=== PATIENT | female | born 1955 | race Caucasian/White ===

== ENCOUNTER 2021-06-27 22:14 | Emergency (ER) | payer MEDICARE, OTHER ==
[~2021-06-27] VITALS: Ht 160 cm; Wt 52.0 kg
[2021-06-27] MEDS ORDERED: LACTATED RINGERS 1,000 ML IV ONE (23:30)
[2021-06-27] MEDS ORDERED: ONDANSETRON 4 MG/2 ML (SDV) Z0FRAN IVP ONE (23:30)
[2021-06-27] MEDS ORDERED: KETOROLAC 30 MG/ML VIAL IVP ONE (23:30)
--- NOTE | 2021-06-27 23:34 | ED Respiratory ---
General Chief Complaint: COVID19 Suspect/Confirmed Stated Complaint: COVID +/SOA Nursing Triage Note: PT ARRIVES TO ER WITH C/O WEAKNESS AND IS COVID + OF 06/23. PT STATES SHE DOES NOT WANT REMDISIVIR BUT HAS TAKEN IVERMECTIN THE LAST THREE DAYS Source: patient Exam Limitations: no limitations History of Present Illness Date Seen by Provider: Jun 27, 2021 Time Seen by Provider: 23:10 Initial Comments The patient presents to the ER by private conveyance with her son and chief complaint of shortness of air and dehydration. She has been using Pepto-Bismol for diarrhea. She was tested positive for COVID-19 on Monday, 5 days ago. Symptoms began 6 days ago. She stopped having fevers after the first several days. She has been drinking lots of fluids but does not feel like she is keeping up with her fluid intake. She also noticed her stools were black after she started the Pepto-Bismol. She denies a history of lung disease. She has been taking ivermectin for the last 3 days. She does not have a primary care provider. She says she omitted today's dose and thought maybe that was why she took a turn for the worst. She has not been vaccinated for COVID-19. She volunteered that she does not want remdesivir administered at this time. For clarity sake remdesivir was never offered or discussed. Allergies and Home Medications Allergies Coded Allergies: No Known Drug Allergies (Unverified , 06/27/21) Patient Home Medication List Home Medication List Reviewed: Yes Benzonatate (Tessalon Perles) 100 Mg Capsule, 100 MG PO Q6H PRN for COUGH Prescribed by: CHARLIE ARZATE on 06/27/21 4803 Ondansetron (Ondansetron Odt) 4 Mg Tab.rapdis, 4 MG PO Q6H PRN for NAUSEA/VOMITING Prescribed by: CHARLIE ARZATE on 06/27/21 8499 Review of Systems Review of Systems Constitutional: No chills, No diaphoresis EENTM: No ear discharge, No ear pain Respiratory: No cough, No short of breath Cardiovascular: No chest pain, No edema Gastrointestinal: No abdominal pain, No constipation; diarrhea; No nausea, No vomiting Genitourinary: No discharge, No dysuria Musculoskeletal: No back pain, No joint pain Skin: No pruritus, No rash Psychiatric/Neurological: Denies Anxiety, Denies Depressed All Other Systems Reviewed Negative Unless Noted: Yes Past Ognojki-Wfxgym-Bbkvfe Hx Patient Social History Tobacco Use?: No Substance use?: No Alcohol Use?: No Pt feels they are or have been: No Immunizations Up To Date Influenza Vaccine Up-to-Date: No; Not Current Physical Exam Vital Signs - First Documented 06/27/21 06/28/21 22:20 01:41 Temp 36.8 Pulse 71 Resp 20 B/P (MAP) 121/55 (77) Pulse Ox 93 O2 Delivery Room Air Capillary Refill : Height: '" Weight: lbs. oz. kg; 20.00 BMI Method: General Appearance: WD/WN, mild distress Eyes: Bilateral Eye Normal Inspection, Bilateral Eye PERRL, Bilateral Eye EOMI HEENT: PERRL/EOMI, pharynx normal Neck: full range of motion, supple, normal inspection Respiratory: lungs clear, normal breath sounds, no respiratory distress, no accessory muscle use Cardiovascular: normal peripheral pulses, regular rate, rhythm, no edema Extremities: non-tender, normal inspection, normal capillary refill Neurologic/Psychiatric: alert, normal mood/affect, oriented x 3 Skin: normal color, warm/dry Progress/Results/Core Measures Suspected Sepsis SIRS Temperature: Pulse: 71 Respiratory Rate: 20 Laboratory Tests 06/27/21 23:50: White Blood Count 3.5L Blood Pressure 121 /55 Mean: 77 Laboratory Tests 06/27/21 23:50: Creatinine 0.80, Platelet Count 145, Total Bilirubin 0.2 Results/Orders Lab Results Laboratory Tests Test 06/27/21 23:50 Range/Units White Blood Count 3.5 L 4.3-11.0 10^3/uL Red Blood Count 4.77 3.80-5.11 10^6/uL Hemoglobin 13.1 11.5-16.0 g/dL Hematocrit 39 35-52 % Mean Corpuscular Volume 83 80-99 fL Mean Corpuscular Hemoglobin 28 25-34 pg Mean Corpuscular Hemoglobin Concent 33 32-36 g/dL Red Cell Distribution Width 12.6 10.0-14.5 % Platelet Count 145 130-400 10^3/uL Mean Platelet Volume 10.0 9.0-12.2 fL Immature Granulocyte % (Auto) 0 % Neutrophils (%) (Auto) 65 42-75 % Lymphocytes (%) (Auto) 25 12-44 % Monocytes (%) (Auto) 10 0-12 % Eosinophils (%) (Auto) 0 0-10 % Basophils (%) (Auto) 0 0-10 % Neutrophils # (Auto) 2.3 1.8-7.8 10^3/uL Lymphocytes # (Auto) 0.9 L 1.0-4.0 10^3/uL Monocytes # (Auto) 0.3 0.0-1.0 10^3/uL Eosinophils # (Auto) 0.0 0.0-0.3 10^3/uL Basophils # (Auto) 0.0 0.0-0.1 10^3/uL Immature Granulocyte # (Auto) 0.0 0.0-0.1 10^3/uL Sodium Level 133 L 135-145 MMOL/L Potassium Level 4.2 3.6-5.0 MMOL/L Chloride Level 98 98-107 MMOL/L Carbon Dioxide Level 23 21-32 MMOL/L Anion Gap 12 5-14 MMOL/L Blood Urea Nitrogen 12 7-18 MG/DL Creatinine 0.80 0.60-1.30 MG/DL Estimat Glomerular Filtration Rate 72 BUN/Creatinine Ratio 15 Glucose Level 123 H 70-105 MG/DL Calcium Level 8.7 8.5-10.1 MG/DL Corrected Calcium 8.9 8.5-10.1 MG/DL Total Bilirubin 0.2 0.1-1.0 MG/DL Aspartate Amino Transf (AST/SGOT) 43 H 5-34 U/L Alanine Aminotransferase (ALT/SGPT) 35 0-55 U/L Alkaline Phosphatase 54 40-136 U/L C-Reactive Protein High Sensitivity 0.21 0.00-0.50 MG/DL Total Protein 6.3 L 6.4-8.2 GM/DL Albumin 3.7 3.2-4.5 GM/DL My Orders Orders - CHARLIE ARZATE Ketorolac Injection (Toradol Injection) (06/27/21 23:30) Ondansetron Injection (Zofran Injectio (06/27/21 23:30) Ed Iv/Invasive Line Start (06/27/21 23:20) Lactated Ringers (Lr 1000 Ml Iv Solution (06/27/21 23:30) Cbc With Automated Diff (06/27/21 23:20) Comprehensive Metabolic Panel (06/27/21 23:20) Hs C Reactive Protein (06/27/21 23:20) Covid-19 External Lab Results (06/27/21 23:20) Isolation Central Supply Req (06/27/21 23:20) Chest 1 View, Ap/Pa Only (06/28/21 00:01) Medications Given in ED Current Medications Medications Dose Ordered Sig/Emili Route Start Time Stop Time Status Last Admin Dose Admin Ketorolac Tromethamine 30 mg ONCE ONCE IVP 06/27/21 23:30 06/27/21 23:32 DC 06/27/21 23:52 30 MG Lactated Ringer's 1,000 ml @ 0 mls/hr Q0M ONCE IV 06/27/21 23:30 06/27/21 23:32 DC 06/27/21 23:52 1,000 MLS/HR Ondansetron HCl 4 mg ONCE ONCE IVP 06/27/21 23:30 06/27/21 23:32 DC 06/27/21 23:52 4 MG Vital Signs/I&O 06/27/21 06/28/21 22:20 01:41 Temp 36.8 Pulse 71 67 Resp 20 20 B/P (MAP) 121/55 (77) 115/82 Pulse Ox 93 O2 Delivery Room Air Capillary Refill : Blood Pressure Mean: 77 Progress Note #1: Time: 23:30 Progress Note Aseptic vital signs. No increased work of breathing. Oxygen saturations in the mid 90s on room air while at rest snoozing when I walked in the room. She does not merit inpatient placement nor does she need oxygen. Steroids will be of no benefit to her. She may yet benefit from monoclonal antibodies. We did have a discussion about the risks, benefits and alternatives to using a monoclonal antibody authorized under an emergency use authorization by the FDA. She says she would like to pursue them and we can try and get her set up tomorrow. We have given her return precautions. She does appear to be a little dry with dry oral mucosa so we will give her a liter of fluids check some basic labs and get a baseline chest x-ray. Progress Note #2: Time: 01:20 Progress Note Patient feels much better and is moving better and ready to go home. Labs were reviewed with her as well as her chest x-ray. Monoclonal antibody handout was distributed to her and she will expect a phone call tomorrow. Diagnostic Imaging Diagonstic Imaging: Xray Plain Films/CT/US/NM/MRI: chest Comments No acute osseous or cardiopulmonary processes noted on 1 view chest x-ray [facility]. [place], [place] NAME: ADINA DIANE [facility] REC#: [id number] PT STATUS: REG ER : 1955 PHYSICIAN: CHARLIE ARZATE MD ADMIT DATE: 06/27/21/ER Signed Date of Exam:06/28/21 CHEST 1 VIEW, AP/PA ONLY Indication: Shortness of breath, positive Covid Portable chest 12:12 AM Heart size and pulmonary vascularity are normal. Lungs are clear. There are no effusions or pneumothoraces. IMPRESSION: No acute abnormalities in the chest Dictated by: Dictated on workstation # [id number] Dict: 06/28/21519 Trans: 06/28/21520 TCB [id number] Interpreted by: BENY RILEY MD Electronically signed by: BENY RILEY MD 06/28/21520 Reviewed: Reviewed by Me Departure Impression Primary Impression: COVID-19 Additional Impression: Mild dehydration Disposition: HOME, SELF-CARE Condition: Stable Departure-Patient Inst. Decision time for Depature: 01:17 Patient Instructions: COVID-19 (DC), REGEN-COV (casirivimab and imdevimab) FDA Fact Sheet Add. Discharge Instructions: Someone should reach out to you Monday morning to discuss setting up Regeneron infusion. If you have a pulse oximeter and your oxygen saturations are consistently measuring below 90% while at rest then you need to return to the nearest ER for examination. Drink plenty of fluids. Imodium 2 tablets initially followed by 1 tablet every 4 hours afterwards as necessary for loose watery stools. Zofran 1 tablet under the tongue every 6 hours as necessary for nausea and/or vomiting. Tessalon Perles 1 caplet every 6 hours as necessary for cough. All discharge instructions reviewed with patient and/or family. Voiced understanding. Scripts Ondansetron (Ondansetron Odt) 4 Mg Tab.rapdis 4 MG PO Q6H PRN for NAUSEA/VOMITING, #15 TAB 0 Refills Prov: CHARLIE ARZATE 06/27/21 Benzonatate (TESSALON PERLES) 100 Mg Capsule 100 MG PO Q6H PRN for COUGH, #20 CAP 0 Refills Prov: CHARLIE ARZATE 06/27/21 CHARLIE ARZATE Jun 27, 2021 23:34
[2021-06-27] MEDS ORDERED: BENZ100C18 PO (23:38)
[2021-06-27] MEDS ORDERED: ONDA4TAB11 PO (23:38)
[2021-06-28 00:03] LABS: BASOPHILS % (AUTO) 0 % (0-10); EOSINOPHILS % (AUTO) 0 % (0-10); HEMATOCRIT 39 % (35-52); HEMOGLOBIN 13.1 g/dL (11.5-16.0); LYMPHOCYTES # (AUTO) 0.9 10^3/uL (1.0-4.0); LYMPHOCYTES % (AUTO) 25 % (12-44); MEAN CORPUSCULAR HEMOGLOBIN 28 pg (25-34); MEAN CORPUSCULAR HGB CONC 33 g/dL (32-36); MEAN CORPUSCULAR VOLUME 83 fL (80-99); MONOCYTES # (AUTO) 0.3 10^3/uL (0.0-1.0); MONOCYTES % (AUTO) 10 % (0-12); NEUTROPHILS # (AUTO) 2.3 10^3/uL (1.8-7.8); NEUTROPHILS % (AUTO) 65 % (42-75); PLATELET COUNT 145 10^3/uL (130-400); WHITE BLOOD COUNT 3.5 10^3/uL (4.3-11.0)
[2021-06-28 00:12] LABS: ALBUMIN 3.7 GM/DL (3.2-4.5); POTASSIUM 4.2 MMOL/L (3.6-5.0)
[2021-06-28 00:13] LABS: CALCIUM 8.7 MG/DL (8.5-10.1)
[2021-06-28 00:15] LABS: TOTAL PROTEIN 6.3 GM/DL (6.4-8.2)
[2021-06-28 00:16] LABS: BILIRUBIN,TOTAL 0.2 MG/DL (0.1-1.0)
[2021-06-28 00:18] LABS: CREATININE SERUM 0.8 MG/DL (0.60-1.30)
[2021-06-28 01:41] VITALS: BP 115/82
--- NOTE | 2021-06-28 05:22 | Diagnostic Imaging Report ---
Indication: Shortness of breath, positive Covid Portable chest 12:12 AM Heart size and pulmonary vascularity are normal. Lungs are clear. There are no effusions or pneumothoraces. IMPRESSION: No acute abnormalities in the chest Dictated by: Dictated on workstation # [id number]
== END 2021-06-28 01:21 | disposition home or self-care (01) ==
LOC: EDUNIT# 22:14 → ER 22:23
DX: U07.1 COVID-19 (principal); E86.0 Dehydration
CPT/HCPCS: 36415; 71045; 80053; 85025; 86141

== ENCOUNTER 2021-06-28 12:19 | Outpatient (CLI) | payer MEDICARE ==
[~2021-06-28] VITALS: Ht 160 cm; Wt 53.6 kg
[~2021-06-28 12:19] MED LIST: BENZ100C18 PO; ONDA4TAB11 PO
[2021-06-28] MEDS ORDERED: CASIRIVIMAB/IMDEVIMAB 1,200 MG in NS (IVPB) 250 ML IV ONE (12:45)
[2021-06-28] MEDS ORDERED: ONDANSETRON 4 MG/2 ML (SDV) Z0FRAN IV PRN (12:45)
[2021-06-28] MEDS ORDERED: diphenhydrAMINE 50 MG/ML INJ (BENADRYL) IV PRN (12:45)
[2021-06-28] MEDS ORDERED: ACETAMINOPHEN 500 MG TAB (TYLENOL) PO PRN (12:45)
[2021-06-28] MEDS ORDERED: EPINEPHrine INJECTION 1 MG/ML AMP IM PRN (12:45)
[2021-06-28 12:50] VITALS: BP 107/63
[2021-06-28 14:33] VITALS: BP 120/79
== END 2021-06-28 14:35 | disposition home or self-care (01) ==
LOC: INFUSION 12:19
PROVIDERS: ATTEND Emergency Medicine
DX: U07.1 COVID-19 (principal)